=== PATIENT | female | born 1995 | race Caucasian/White ===

== ENCOUNTER 2018-12-08 10:04 | Emergency (ER) | payer BC ==
[~2018-12-08] VITALS: Ht 162.6 cm; Wt 52.3 kg
[2018-12-08 10:12] VITALS: BP 140/81
[2018-12-08 10:55] LABS: URINE HCG NEGATIVE (NEG)
[2018-12-08 10:56] LABS: CLARITY,URINE SLIGHTLY CLOUDY (Clear); COLOR,URINE YELLOW (Yellow); GLUCOSE, URINE NEGATIVE (Neg); KETONES,URINE TRACE mg/dl (Neg); LEUKOCYTE ESTERASE ,URINE SMALL (Neg); NITRITES, URINE NEGATIVE (Neg); OCCULT BLOOD,URINE NEGATIVE (Neg); PROTEIN,URINE NEGATIVE (Neg); UROBILINOGEN,URINE 0.2 E.U/dL (0.2-1.0)
[2018-12-08 11:00] LABS: BASOPHILS % (AUTO) 0.6 % (0-1); EOSINOPHILS # (AUTO) 0.1 X10'3 (0-0.9); EOSINOPHILS % (AUTO) 0.7 % (0-6); HEMATOCRIT 43.3 % (35.0-45.0); HEMOGLOBIN 14.8 g/dl (12.0-16.0); LYMPHOCYTES # (AUTO) 1.7 X10'3 (1.1-4.8); LYMPHOCYTES % (AUTO) 21.4 % (21-51); MEAN CORPUSCULAR HGB CONC 34.1 g/dL (33.0-36.5); MEAN PLATELET VOLUME 7.7 FL (7.4-10.4); MONOCYTES # (AUTO) 0.6 X10'3 (0-0.9); MONOCYTES % (AUTO) 7.6 % (2-12); NEUTROPHILS # (AUTO) 5.4 X10'3 (1.8-7.7); NEUTROPHILS % (AUTO) 69.7 % (42-75); PLATELET COUNT 265 X10'3 (140-440); RED BLOOD COUNT 4.75 X10'6 (4.20-5.60); RED CELL DISTRIBUTION WIDTH 12.8 % (11.5-14.5); WHITE BLOOD COUNT 7.7 X10'3 (4.5-11.0)
[2018-12-08 11:17] LABS: CHLORIDE 107 MMOL/L (99-107); GLUCOSE 104 MG/DL (70-104); POTASSIUM 3.8 MMOL/L (3.5-5.1); SODIUM 141 MMOL/L (135-145); TOTAL CARBON DIOXIDE 24.2 MMOL/L (24-32)
[2018-12-08 11:18] LABS: URINE AMPHETAMINE SCREEN NEGATIVE (Neg); URINE BARBITUATE SCREEN NEGATIVE (Neg); URINE BENZODIAZEPINES SCREEN NEGATIVE (Neg); URINE CANNABINOID SCREEN POSITIVE (Neg); URINE COCAINE SCREEN NEGATIVE (Neg); URINE METHADONE SCREEN NEGATIVE (Neg); URINE OPIATE SCREEN NEGATIVE (Neg); URINE PHENCYCLIDINE SCREEN NEGATIVE (Neg)
[2018-12-08 11:18] LABS: ALANINE AMINOTRANSFERASE 22 U/L (12-78); ALBUMIN 4.4 G/DL (3.4-5.0); ALBUMIN/GLOBULIN RATIO 1.5 (1.1-1.5); ALKALINE PHOSPHATASE 42 IU/L (46-116); ANION GAP 10 (8-16); ASPARTATE AMINO TRANSFERASE 15 U/L (10-37); BILIRUBIN,TOTAL 0.7 MG/DL (0.1-1.0); BLOOD UREA NITROGEN 8 MG/DL (7-18); BUN/CREATININE RATIO 11.3 (6.6-38.0); CALCIUM 9.1 MG/DL (8.5-10.1); CREATININE 0.71 MG/DL (0.40-0.90); TOTAL PROTEIN 7.4 G/DL (6.4-8.2); eGFR > 90 ML/MIN
[2018-12-08 11:19] LABS: UA COLLECTION TYPE CLN CATCH MIDSTREAM
[2018-12-08 11:23] LABS: ETHANOL < 0.010 GM/DL (0.0-0.010)
[2018-12-08 11:29] LABS: ACETAMINOPHEN < 2.0 UG/ML (10-30)
[2018-12-08 11:32] LABS: AMORPHOUS URATES 1+; BACTERIA,URINE 2+ /HPF (Neg); MUCUS STRANDS FEW /LPF (Neg); RBC,URINE NONE SEEN /HPF (0-2); SQUAMOUS EPITHELIAL CELL,UR MODERATE /LPF (FEW); TRANSITIONAL EPI CELLS,URINE FEW /HPF; WBC CLUMPS,URINE FEW /HPF (NEGATIVE)
--- NOTE | 2018-12-08 12:50 | NUR ---
[facility] on a . Mother is at her bedside. Pt states she has been seeing a therapist and she recently stopped taking Escitalopram. Pt is instantly tearful.
--- NOTE | 2018-12-08 13:30 | NUR ---
Pt ate 25% of her lunch and fell asleep. Her mother continues to stay at her bedside.
--- NOTE | 2018-12-08 15:27 | NUR ---
Pt placed on 5150. Pt is on private insurance; [facility] office notified. [facility] charge nurse, Rosette notified.
--- NOTE | 2018-12-08 15:34 | NUR ---
Faxed packet to [facility]
--- NOTE | 2018-12-08 15:44 | NUR ---
Pt has been accepted at [facility]
[2018-12-09] MEDS ORDERED: NO HOME MEDS (11:14)
== END 2018-12-08 14:44 ==
LOC: ER 10:05
DX: R45.851 Suicidal ideations (principal); F12.90 Cannabis use, unspecified, uncomplicated
CPT/HCPCS: 36415; 80053; 80305; 80320; 80329; 81001; 81025; 84443; 85025; 99285

== ENCOUNTER 2018-12-08 16:00 | Inpatient (IN) | payer BC ==
[~2018-12-08] VITALS: Ht 165.1 cm; Wt 50.0 kg
[2018-12-08] MEDS ORDERED: loperamide 2mg capsule PO PRN (16:40)
[2018-12-08] MEDS ORDERED: magnesium hydroxide 30ml (MOM) UD suspension PO PRN (16:40)
[2018-12-08] MEDS ORDERED: acetaminophen 325mg tablet PO PRN ×2 (16:40)
[2018-12-08] MEDS ORDERED: mag hydrox/Alum hydrox/simeth 30ml oral suspension PO PRN (16:40)
[2018-12-08 18:19] VITALS: BP 116/93
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
--- NOTE | 2018-12-08 19:30 | NUR ---
Pt has a diagnosed UTI. Pt started on Septra DS 800/160 PO BID Addendum: 12/08/18 at 2203 by Cristina Milton RN Amended: Links added.
[2018-12-08 20:00] VITALS: BP 110/75
[2018-12-08] MEDS ORDERED: sulfamethoxazole/trimethoprim DS (800/160mg) tablet PO ONE (20:00)
[2018-12-08] MEDS: hydrOXYzine 25 MG tablet PO PRN (20:16)
[2018-12-08] MEDS: lactobacillus rhamnosus 10,000 MMU CELLS/CAPSULE PO SCH ×2 (21:00→21:09)
[2018-12-08] MEDS: LORazepam 1 MG tablet PO PRN (21:09)
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
[2018-12-09 07:14] LABS: HEMOGLOBIN A1C 4.9 % (4.5-6.2)
[2018-12-09 07:17] LABS: CHOL/HDL RATIO 2.3 (0.00-4.99); CHOLESTEROL 156 MG/DL (0-200); HDL CHOLESTEROL 69 MG/DL (35-60); LDL CHOLESTEROL 78 MG/DL (50-100); TRIGLYCERIDES 52 MG/DL (20-135)
[2018-12-09 07:33] VITALS: BP 112/74
[2018-12-09] MEDS: sulfamethoxazole/trimethoprim DS (800/160mg) tablet PO SCH ×2 (09:13→20:54)
[2018-12-09] MEDS ORDERED: NO HOME MEDS (11:14)
--- NOTE | 2018-12-09 11:49 | NUR ---
Malnutrition consult: Current documented wt on the low end of appropriate with BMI of 18.9 with no documented wt hx to assess for potential wt loss. Pt with no edema or decrease in muscle strength, currently on regular diet documented with 100% PO intake meeting nutrient needs. Pt currently lacks a minimum of two criteria for malnutrition. Will continue to follow. Addendum: 12/09/18 at [address] Amended: Links added.
[2018-12-09] MEDS: ibuprofen tablet 400 MG TABLET PO SCH ×2 (15:28→20:54)
[2018-12-09] MEDS: LORazepam 1 MG tablet PO PRN ×2 (16:25→22:25)
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
[2018-12-09 19:49] VITALS: BP 108/85
[2018-12-09] MEDS: lactobacillus rhamnosus 10,000 MMU CELLS/CAPSULE PO SCH (20:54)
[2018-12-09] MEDS: hydrOXYzine 25 MG tablet PO PRN (20:54)
[2018-12-09] MEDS: mirtazapine 15mg tablet PO PRN (22:12)
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
[2018-12-10 07:16] VITALS: BP 99/65
[2018-12-10] MEDS: ibuprofen tablet 400 MG TABLET PO SCH ×3 (09:06→20:20)
[2018-12-10] MEDS: sulfamethoxazole/trimethoprim DS (800/160mg) tablet PO SCH ×2 (09:07→20:20)
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
[2018-12-10 19:57] VITALS: BP 131/85
[2018-12-10] MEDS: hydrOXYzine 25 MG tablet PO PRN (20:20)
[2018-12-10] MEDS: lactobacillus rhamnosus 10,000 MMU CELLS/CAPSULE PO SCH (20:20)
[2018-12-10] MEDS: LORazepam 1 MG tablet PO PRN (21:07)
[2018-12-10] MEDS: mirtazapine 15mg tablet PO PRN (22:04)
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
[2018-12-11 08:00] VITALS: BP 115/80
[2018-12-11] MEDS: sulfamethoxazole/trimethoprim DS (800/160mg) tablet PO SCH ×2 (08:21→20:26)
[2018-12-11] MEDS: FLUoxetine 20mg capsule PO SCH (08:21)
[2018-12-11] MEDS: ibuprofen tablet 400 MG TABLET PO SCH ×3 (08:21→20:25)
[2018-12-11] MEDS: LORazepam 1 MG tablet PO PRN (09:08)
[2018-12-11] MEDS: hydrOXYzine 25 MG tablet PO PRN (12:44)
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
--- NOTE | 2018-12-11 18:30 | NUR ---
Patient in room MH 325. I have received report from RN and had the opportunity to ask questions and assume patient care.
--- NOTE | 2018-12-11 19:18 | NUR ---
In rec room with visitors.
[2018-12-11 19:57] VITALS: BP 126/84
[2018-12-11] MEDS: lactobacillus rhamnosus 10,000 MMU CELLS/CAPSULE PO SCH (20:25)
--- NOTE | 2018-12-11 20:25 | NUR ---
pt states voiding without diff. denies any burning. Addendum: 12/11/18 at 2200 by Laura Rodarte RN Amended: Links added.
--- NOTE | 2018-12-11 20:27 | NUR ---
Calm and pleasant. was talking on phone.
[2018-12-11] MEDS: mirtazapine 15mg tablet PO PRN (21:30)
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
[2018-12-12 08:00] VITALS: BP 102/72
[2018-12-12] MEDS: ibuprofen tablet 400 MG TABLET PO SCH ×3 (08:00→21:07)
[2018-12-12] MEDS: sulfamethoxazole/trimethoprim DS (800/160mg) tablet PO SCH ×2 (08:23→21:07)
[2018-12-12] MEDS: FLUoxetine 20mg capsule PO SCH (08:23)
[2018-12-12] MEDS ORDERED: ibuprofen 200mg tablet PO SCH (12:30)
[2018-12-12] MEDS ORDERED: ibuprofen 200mg tablet PO PRN (14:10)
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
[2018-12-12] MEDS: hydrOXYzine 25 MG tablet PO PRN (19:05)
[2018-12-12 20:00] VITALS: BP 117/87
[2018-12-12] MEDS: lactobacillus rhamnosus 10,000 MMU CELLS/CAPSULE PO SCH (21:07)
[2018-12-12] MEDS: LORazepam 1 MG tablet PO PRN (21:08)
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
[2018-12-13] MEDS: mirtazapine 15mg tablet PO PRN ×2 (00:16→20:58)
[2018-12-13 07:30] VITALS: BP 104/72
[2018-12-13] MEDS: sulfamethoxazole/trimethoprim DS (800/160mg) tablet PO SCH ×2 (07:59→20:56)
[2018-12-13] MEDS: FLUoxetine 20mg capsule PO SCH (07:59)
[2018-12-13] MEDS: ibuprofen tablet 400 MG TABLET PO SCH ×3 (07:59→20:56)
--- NOTE | 2018-12-13 10:29 | NUR ---
Initial: Appetite was fair on admission and was eating 75-100% when first admitted then declined to 25-49% of regular meals. Noted that patient is taking Remeron, may increase appetite. Patient showed improvement in appetite this morning with 100% PO Intake of breakfast. Recommend: 1. continue regular diet 2. Weekly wts Addendum: 12/13/18 at [address] Amended: Links added.
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
[2018-12-13 20:23] VITALS: BP 126/89
[2018-12-13] MEDS: lactobacillus rhamnosus 10,000 MMU CELLS/CAPSULE PO SCH (20:56)
[2018-12-13] MEDS: LORazepam 1 MG tablet PO PRN (21:24)
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
[2018-12-14] MEDS: FLUoxetine 20mg capsule PO SCH (08:25)
[2018-12-14] MEDS: ibuprofen tablet 400 MG TABLET PO SCH ×3 (08:25→21:08)
[2018-12-14] MEDS: sulfamethoxazole/trimethoprim DS (800/160mg) tablet PO SCH ×2 (08:25→21:08)
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
[2018-12-14] MEDS: hydrOXYzine 25 MG tablet PO PRN (18:54)
[2018-12-14 20:00] VITALS: BP 128/86
[2018-12-14] MEDS: mirtazapine 15mg tablet PO PRN (21:07)
[2018-12-14] MEDS: LORazepam 1 MG tablet PO PRN (21:07)
[2018-12-14] MEDS: lactobacillus rhamnosus 10,000 MMU CELLS/CAPSULE PO SCH (21:08)
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
[2018-12-15 07:42] VITALS: BP 100/74
[2018-12-15] MEDS: ibuprofen tablet 400 MG TABLET PO SCH (07:57)
[2018-12-15] MEDS: FLUoxetine 20mg capsule PO SCH (07:57)
[2018-12-15] MEDS: sulfamethoxazole/trimethoprim DS (800/160mg) tablet PO SCH ×2 (07:57→19:27)
[2018-12-15] MEDS ORDERED: ibuprofen tablet 400 MG TABLET PO PRN (15:20)
--- NOTE | 2018-12-15 17:06 | NUR ---
NURSING PROGRESS NOTE: LUIS ALFREDO Legal hold: Voluntary Client on involuntary status for DTS Report received from nurse with use of SBAR: DONATO Ladd Why are they here: Why are they here: Patient was arrested in May for public intoxication in [place], she was referred from [facility] for anabaptist of competency to stand trial. Patient is psychotic and is DTS. She has a history of multiple psychiatric hospitalizations and polysubstance abuse. Assessment What has happened this shift: Pt. has been pleasant, cooperative this shift. Occasional complaints of knee pain. Pts. condition is largely unchanged. Assessment S/I, H/I: SI A/VH: Pt denies Sleep: 8.0 hrs NOC. ADL's: Independent Group attendance: Yes Were meds taken: Medication compliant. Any med S/E: None reported or observed. Mental Status Exam Appearance: Clean, neat, dressed in green unit scrubs. Eye contact: Direct Behavior: appropriate Speech: Spontaneous, normal rate and rhythm Mood: euthymic Affect: Congruent with mood Thought process: Linear Thought Content: Medications, group topics Cognition: Alert & Oriented x4 Insight: Fair Judgment: Fair Interventions PRN's used: Therapeutic interventions: 1:1 therapeutic assessment and conversation, provided medication administration/education/monitoring, provided active listening with positive feedback, Q15 min safety checks. Restraints/seclusion/emergency medication: N/A Justification of Continued Inpatient Treatment: Pt is depressed and a DTS, requiring medication management and a therapeutic milieu to interrupt current crisis. Addendum: 12/15/18 at 1806 by Esmer Bojorquez RN error, wrong patient.
[2018-12-15] MEDS ORDERED: FLUO20CA22 PO (18:04)
[2018-12-15] MEDS ORDERED: MIRT15TA8 PO (18:04)
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
[2018-12-15 19:00] VITALS: BP 121/84
[2018-12-15] MEDS: mirtazapine 15mg tablet PO PRN (19:27)
[2018-12-15] MEDS: lactobacillus rhamnosus 10,000 MMU CELLS/CAPSULE PO SCH (19:27)
--- NOTE | 2018-12-15 19:43 | NUR ---
DISCHARGE NOTE: Client was AO X 4, pleasant and cooperative. Client is "looking forward to discharge". Mood is stable at this time. Clients' personal belongings were inventoried with client present. All items were accounted for. Discharge instructions were reviewed with client by Angela Romero RN. Client is being discharged to her home. E Addendum: 12/15/18 at 1949 by Angela Ramirez RN Pt. denies S/I and is able to contract for safety, states, "On an emotional scale, I am a zero right now." She is able to identify coping skill as writing and completing artwork, states, "It helps me to get out of my own head." Pt. reports her medications are effective, and denies any further s/s of UTI. V/S are stable and pt. affect is animated. She is escorted to her car by this instructional writer with her belongings, accompanied by her mother and friend.
--- NOTE | 2018-12-15 19:47 | NUR ---
Client left unit at 19:30 accompanied by Angela Romero RN, her mother, and a friend.
== END 2018-12-15 19:48 | disposition home or self-care (01) | DRG 885 ==
LOC: ADULT MH 16:00
PROVIDERS: ADMIT Psychiatry & Neurology Psychiatry; ATTEND Psychiatry & Neurology Psychiatry
DX: F33.2 Major depressive disorder, recurrent severe without psychotic features (principal); R45.851 Suicidal ideations; F12.90 Cannabis use, unspecified, uncomplicated; F17.210 Nicotine dependence, cigarettes, uncomplicated; F43.10 Post-traumatic stress disorder, unspecified; Z79.899 Other long term (current) drug therapy
CPT/HCPCS: 36415; 80061; 83036; 87081; 99285; Z7610

== ENCOUNTER 2019-03-17 00:11 | Emergency (ER) | payer BC ==
[~2019-03-17] VITALS: Ht 162.6 cm; Wt 52.0 kg
[~2019-03-17 00:11] MED LIST: FLUO20CA22 PO; MIRT15TA8 PO
[2019-03-17 00:12] VITALS: BP 126/83
--- NOTE | 2019-03-17 00:19 | NUR ---
PT WAS REQUESTING TO USE THE RESTROOM. WITH THE PERMISSION OF THE OFFICER, A BEDSIDE COMMODE WAS BROUGHT TO THE ROOM AND PT WAS RELEASED FROM ONE HANDCUFF AND ONE REMAINED ON THE BED RAIL. SHE WAS ALLOWED TO URINATE AND THEN PLACED BACK INTO BED. CURTAIN WAS PULLED FOR PRIVACY AND FEMALE STAFF WERE PRESENT.
[2019-03-17 00:41] LABS: URINE HCG NEGATIVE (NEG)
== END 2019-03-17 00:50 ==
LOC: ER 00:11
DX: F10.129 Alcohol abuse with intoxication, unspecified (principal); F41.9 Anxiety disorder, unspecified; F32.9 Major depressive disorder, single episode, unspecified; Z79.899 Other long term (current) drug therapy; Y90.9 Presence of alcohol in blood, level not specified
CPT/HCPCS: 81025; 99283

== ENCOUNTER 2019-04-27 11:26 | Outpatient (CLI) | payer BC ==
[~2019-04-27 11:26] MED LIST changes: +FLUO-167 PO; -FLUO20CA22 PO
== END 2019-04-27 23:59 | disposition home or self-care (01) ==
LOC: RAD 11:26 → MERGE 12:00 → EDBD 12:00 → RAD 23:59
PROVIDERS: ATTEND Psychiatry & Neurology Neurology
DX: R51 Headache (principal); Z87.820 Personal history of traumatic brain injury
CPT/HCPCS: 95816